=== PATIENT | female | born 1970 | race Caucasian/White ===

== ENCOUNTER 2018-11-25 10:34 | Inpatient (IN) | payer MEDICAID ==
[~2018-11-25] VITALS: Ht 157.5 cm; Wt 63.2 kg
[2018-11-25 10:37] VITALS: Ht 157.5 cm; Wt 63.2 kg
--- NOTE | 2018-11-25 10:55 | NUR ---
PT. IN ED WITH C/O CHAN AND NAUSEA SINCE YESTERDAY. REPORTS SHE HAD TWO EPISODES OF EMESIS THIS MORINING. DENIES CHEST PAIN. NUMBNESS OR TINGLING TO BODY. STRENGTHS EQUAL. NO DEFICITS NOTED. PT. AAOX4, TALKING AND RESPONDING APPROPRIATELY, BREATHING E/U. REPORTS CHAN 12/09. PT. PLACED ON FULL SPINNER TENDER. CALL LIGHT IN REACH. WILL CONTINUE TO MONITOR.
--- NOTE | 2018-11-25 11:19 | NUR ---
PT. TAKEN TO CT VIA [facility]
[2018-11-25 11:20] LABS: BASOPHIL % 1.1 % (0-2); PLATELET COUNT 214 x10^3mcL (130-400)
[2018-11-25 11:25] LABS: RED CELL DISTRIBUTION WIDTH 15.2 % (11.5-14.5)
[2018-11-25 11:38] LABS: CALCIUM 8.4 mg/dL (8.5-10.1); CARBON DIOXIDE 25.2 mmol/L (21-32); CREATININE SERUM 2.2 mg/dL (0.6-1.0); POTASSIUM SERUM 4.5 mmol/L (3.5-5.1)
--- NOTE | 2018-11-25 12:35 | NUR ---
PER DR. WYATT, HOLD NICARDIPINE DRIP IF DECREASE IN MAP IS MORE THAN 20% FROM WHEN PATIENT ARRIEVED TO ED.
--- NOTE | 2018-11-25 12:53 | NUR ---
PT. LAYING ON GURNEY IN POSITON OF COMFORT. BREATHING E/U. NOT IN ANY APPARENT DISTRESS. DAUGHTER AT BEDSIDE. CALL LIGHT IN REACH. WILL CONTINUE TO MONITOR.
--- NOTE | 2018-11-25 13:19 | NUR ---
PT. REPORTS CHAN 10/09 AT THIS TIME. CALL LIGHT IN REACH. WILL CONTINUE TO MONITOR.
[2018-11-25] MEDS ORDERED: AVALIDE1 TA1 PO (13:31)
--- NOTE | 2018-11-25 13:31 | NUR ---
MED REC COMPLETED USING PILLS BROUGHT IN BY PT.
[2018-11-25 13:33] LABS: MAGNESIUM 1.8 mg/dL (1.8-2.4); PHOSPHOROUS 4.2 mg/dL (2.5-4.9)
--- NOTE | 2018-11-25 13:35 | NUR ---
NICARDIPINE DRIP D/C PER DR. WYATT ORDERS. MAP 113 AT THIS TIME.
[2018-11-25 13:36] LABS: FREE T4 0.91 ng/dL (0.76-1.46); FREE THYROXINE INDEX 2.5 ug/dL (1.4-4.5); T4(THYROXINE) 7.1 ug/dL (4.7-13.3)
[2018-11-25 13:45] LABS: CHOLESTEROL 215 mg/dL (<200); CHOLESTEROL/HDL RATIO 6.3; HDL CHOLESTEROL 34 mg/dL (40-60); TRIGLYCERIDES 623 mg/dL (<150)
--- NOTE | 2018-11-25 13:45 | NUR ---
REPORT GIVEN TO MECCA BAILEY IN ICU FOR FURTHER CARE OF PATIENT. ALL QUESTIONS AND CONCERNS ADDRESSED.
--- NOTE | 2018-11-25 13:57 | NUR ---
PT ADMITTED TO ICU FROM ED AT THIS TIME. VITAL SIGNS: T 98.1, HR 84, BP 159/87 (104), SPO2 99% ON RA, RR 14. PT IS AWAKE, ALERT, AND ABLE TO COMMUNICATE NEEDS AND FOLLOW COMMANDS. PT IS A/O X 4. NO FACIAL DROOP NOTED, NO UNILATERAL WEAKNESS NOTED, PT C/O HEADACHE WITH 4/10 PAIN. PT DENIES SHORTNESS OF BREATH AND DENIES CHEST PAIN. CHEST WALL STABLE, CHEST EXPANSION SYMMETRIC. PT AMBULATORY, ABLE TO ADJUST POSITION IN BED. BOWEL SOUNDS ACTIVE, PT DENIES NAUSEA AT THIS TIME. VITAL SIGNS STABLE, BLOOD PRESSURE CONTINUES TRENDING DOWN FROM WHEN SHE WAS ADMITTED TO THE ED. WILL CONTINUE MONITORING PT.
--- NOTE | 2018-11-25 14:00 | NUR ---
PT. TRANSPORTED TO ICU FOR FURTHER EVAL AND CARE. PT. AAOX4, TALKING AND RESPONDING APPROPRIATELY, BREATHING E/U. NAD. TRANSPORTED BY RONA RN AND SILVANO EMT. PT. STABLE AT TIME OF TRANSFER.
[2018-11-25 14:12] LABS: microscopic required? YES; urine erythrocyte 2+ (NEGATIVE)
--- NOTE | 2018-11-25 14:28 | NUR ---
DR. PASTRANA & DR. BIRMINGHAM AT BEDSIDE, UPDATES PROVIDED AND QUESTIONS ANSWERED. THEY REQUESTED HOLDING NICARDIPINE GTT FOR NOW SINCE SBP IS <175, AND STATED THAT Q 30 MIN BP MONITORING IS OK AT THIS TIME. WILL CONTINUE TO MONITOR PT.
[2018-11-25 14:34] LABS: AMPHETAMINE QUAL UR NONE DETECTED (See below)
--- NOTE | 2018-11-25 15:40 | NUR ---
PT C/O 09/08 HEADACHE, MEDICATED PRN WITH NORCO.
[2018-11-25 15:42] VITALS: BP 159/87
--- NOTE | 2018-11-25 15:45 | NUR ---
IVF EMBRYOLOGIST AT BEDSIDE TO DO ECHOCARDIOGRAM.
[2018-11-25 16:00] VITALS: BP 156/94
--- NOTE | 2018-11-25 16:14 | NUR ---
NICARDIPINE GTT HELD AT THIS TIME PER REQUEST FROM DR. AYALA. HE SUGGESTED TRYING A DOSE OF PO CARVEDILOL INSTEAD. WILL CARRY OUT NEW ORDER AND CONTINUE MONITORING PT.
--- NOTE | 2018-11-25 16:20 | NUR ---
CALLED DR. PASTRANA RE: ORDER FOR NS @ 60 ML/HR SINCE MOST RECENT BP IS 181/101. DR. PASTRANA SAID SHE WOULD UPDATE THE ORDER TO A REDUCED RATE, BUT WOULD LIKE HER TO BE ON IV FLUID D/T THE PT'S RENAL FUNCTION. WILL CARRY OUT UPDATED ORDER.
--- NOTE | 2018-11-25 17:23 | NUR ---
PT ASSISTED TO BEDSIDE COMMODE. HAD 850 ML URINE OUTPUT, YELLOW IN COLOR. PT ASSISTED BACK INTO BED, VITAL SIGN MONITORING CORDS RECONNECTED.
--- NOTE | 2018-11-25 18:40 | NUR ---
DR. SALGUERO MADE AWARE NIBP 86/50 MAP 61 WITH CURRENT IVF RATE OF 30ML/HR AND SUGGESTED CHANGING THE RATE BACK TO 60 ML/HR ORIGINALLY ORDERED BY DR. PASTRANA. PER DR. SALGUERO SHE WILL CHANGE THE ORDER.
[2018-11-25 19:00] VITALS: BP 91/51
--- NOTE | 2018-11-25 19:13 | NUR ---
DR. PENA AT BEDSIDE TO SEE AND ASSESS PT. PER DR. PENA PT STABLE TO TRANSFER TO [facility]. NOC MORTGAGE LOAN ORIGINATOR MADE AWARE.
--- NOTE | 2018-11-25 19:40 | NUR ---
RECIEVED PT IN NO ACUTE DISTRESS. AOX4. TELE #4, SR. DENIES CP. LUNG SOUNDS CLEAR BILATERALLY. BREATHING E/U ON RA. DENIES CHAN/N/V. LATEST BP 93/53, HR 72. IV TO LAC, PATENT, NO REDNESS/SWELLING. BED IN LOWEST POSITION, 2 SIDE RAILS UP, CALL LIGHT IN REACH. INSTRUCTED TO CALL FOR ASSISTANCE.
[2018-11-26] VITALS: BP 112/70
--- NOTE | 2018-11-26 01:19 | NUR ---
AOX4 AT THIS TIME. BREATHING E/U ON RA. VSS. DENIES CHAN/N/V. NO ACUTE DISTRESS NOTED. WILL CONTINUE TO MONITOR.
--- NOTE | 2018-11-26 07:04 | NUR ---
NO C/O HEADACHE/N/V OVERNIGHT. LATEST BP 148/88. BUN THIS AM 66. DR. PASTRANA NOTIFIED VIA [employer]. WILL ENDORSE TO ONCOMING LEO.
--- NOTE | 2018-11-26 07:10 | NUR ---
RECEIVED REPORT FROM HANSEL BAILEY. ALL QUESTIONS ANSWERED AND ADDRESSED. WILL ASSUME CARE OF PT.
[2018-11-26 07:15] VITALS: BP 148/88
[2018-11-26 09:12] LABS: BASOPHIL % 1.6 % (0-2); PLATELET COUNT 228 x10^3mcL (130-400)
[2018-11-26 09:20] LABS: CALCIUM 8.1 mg/dL (8.5-10.1); CARBON DIOXIDE 28.6 mmol/L (21-32); CREATININE SERUM 2.8 mg/dL (0.6-1.0); POTASSIUM SERUM 4.5 mmol/L (3.5-5.1)
[2018-11-26 09:22] LABS: RED CELL DISTRIBUTION WIDTH 15.2 % (11.5-14.5)
--- NOTE | 2018-11-26 09:51 | NUR ---
DR. SOTO AND RESIDENTS AT BEDSIDE ASSESSING PT. ALL QUESTIONS ANSWERED AND ADDRESSED AND UPDATES PROVIDED. PT OK TO TRANSFER. WILL CARRY OUT ORDERS ONCE RECEIVED.
--- NOTE | 2018-11-26 12:04 | NUR ---
PT RESTING BUT EASILY AROUSABLE AT THIS TIME. AAOX4. ABLE TO FOLLOW COMMANDS. SPEECH IS CLEAR AND APPROPRIATE. NO FACIAL DROOP. SMILE IS SYMMETRICAL. NO UNILATERAL WEAKNESS. PUPILS 3MM IN SIZE AND BRISK B/E. DENIES DIZZINESS, SYNCOPE, CP, OR SOB. REMAINS ON ROOM AIR. O2 SAT OF 96%. NSR ON SCRATCH POLISHER. S1/S2 HEART SOUNDS AUDIBLE. NO MURMURS AUSCULTATED. MOD PALPABLE PULSES X4. CAP REFILL <3 SEC. NO EDEMA. SKIN IS WARM/DRY TO TOUCH, BURKS/BROWN IN COLOR. NICARDIPINE GTT REMAINS OFF. BP = 148/87 (106). PIV TO L AC INTACT, PORT PATENT, DRESSING CDI. NS INFUSING @ 60 ML/HR. ABD IS SOFT, SYMMETRICAL, ROUNDED, AND NONTENDER. ACTIVE BOWEL SOUNDS AUSCULTATED. VOIDS FREELY VIA BEDSIDE COMMODE. CCHO DIET. TOLERATING WELL. NO N/V OR ABD PAIN. PT ABLE TO MOVE ALL EXTREMITIES. FULL ROM NOTED. ABLE TO TURN AND REPOSITION SELF. X3 SIDE RAILS UP, BED IN LOWEST POSITION, CALL LIGHT WITHIN REACH.
--- NOTE | 2018-11-26 12:42 | NUR ---
DR. STOCK AT BEDSIDE ASSESSING PT. UPDATES PROVIDED. STATED FOR PT TO HAVE BP AROUND 150-160 SYSTOLIC TO MAINTAIN KIDNEY FUNCTION. STRICT I&O STILL.
--- NOTE | 2018-11-26 12:53 | NUR ---
REPORT GIVEN TO MELLISA BAILEY. ALL QUESTIONS ANSWERED AND ADDRESSED. [facility] WHEEL[facility]IR. PT'S BELONGINGS BEING TAKEN WITH THEM WELL.
--- NOTE | 2018-11-26 13:11 | NUR ---
Discount pharmacy card and list to low cost medical clinics given to patient by Maximus Herron.
--- NOTE | 2018-11-26 13:40 | NUR ---
AT 1320 - RECEIVED PATIENT FROM ICU NURSE VIA WHEELCHAIR. SETTLED IN ROOM, ORIENTED TO SURROUNDINGS AND PLACED ON CARDIAC MONITORING, TELE # 16. PATIENT IS AWAKE, ALERT AND APPEARS ORIENTED. BP 155/78. MONITOR SHOWING SINUS RHYTHM, RATE 80'S. IV INFUSING NS AT 60 ML/HR.
[2018-11-26 13:46] VITALS: BP 144/77
[2018-11-26 16:56] VITALS: BP 153/88
--- NOTE | 2018-11-26 18:38 | NUR ---
IV IN LAC INFILTRATED. RESITED IN RFA AND IV INFUSION OF NS RESUMED AT 60 ML/HR. LAST BP 153/88. NO C/O PAIN. FAMILY AT BEDSIDE. RECEIVED CALL FROM LAB - URINE FOR NA AND PROTEIN STIL REQUIRED. PATIENT AWARE. PROVIDED WITH SPECIMEN CONTAINER. WILL ENDORSE CARE TO NIGHT NURSE.
--- NOTE | 2018-11-26 19:30 | NUR ---
PT RECIEVED FROM DAY NURSE. PT RESTING IN BED COMFORTABLY. FAMILY AT BEDSIDE. A/O X4, DENIES PAIN OR DISCOMFORT AT THIS TIME. TELE 16, NSR. DENIES CP, NV, DIZZINESS, OR PALPATATIONS. PALPABLE PULSES, NO EDEMA NOTED AT THIS TIME. BREATHING E/U ON RA. ABD SOFT AND ROUND, DENIES PAIN TO PALPATION. PT AMBULATORY AT BASELINE. RFA IV, INTACT AND INFUSING. BED AT LOWEST POSITION. CALL LIGHT WITHIN REACH. WILL CONTINUE TO MONITOR.
[2018-11-26 20:12] VITALS: BP 191/98
[2018-11-26 21:46] VITALS: BP 153/75
--- NOTE | 2018-11-26 21:50 | NUR ---
PT BP 191/98, MEDICATED PT WITH SCHEDULED COREG. BP RECHECKED AN HR LATER, BP NOW 153/75. PT RESTING COMFORTABLY IN BED.
--- NOTE | 2018-11-27 00:19 | NUR ---
PT RESTINGIN BED AT THIS TIME. NO S/S OF PAIN OR DISTRESS NOTED AT THIS TIME. BREATHING E/U ON RA. BED AT LOWEST POSITION. CALL LIGHT WITHIN REACH. WILL CONTINUE TO MONITOR.
[2018-11-27 05:38] VITALS: BP 158/89
[2018-11-27 06:08] LABS: BASOPHIL % 0.9 % (0-2); PLATELET COUNT 232 x10^3mcL (130-400)
--- NOTE | 2018-11-27 06:41 | NUR ---
PT RESTING IN BED AT THIS TIME. DENIES PAIN OR DISCOMFORT. BREATHING E/U ON RA, NO SIGNS OF ACUTE DISTRESS THIS SHIFT. ALL NEEDS AND CONCERNS ADDRESSED THIS SHIFT. BED AT LOWEST POSITION. CALL LIGHT WITHIN REACH. WILL ENDORSE TO DAY NURSE.
[2018-11-27 07:05] LABS: CARBON DIOXIDE 28.2 mmol/L (21-32); CREATININE SERUM 2.6 mg/dL (0.6-1.0); MAGNESIUM 1.8 mg/dL (1.8-2.4); PHOSPHOROUS 4.4 mg/dL (2.5-4.9)
[2018-11-27 07:06] LABS: CALCIUM 8.1 mg/dL (8.5-10.1)
[2018-11-27 07:09] LABS: RED CELL DISTRIBUTION WIDTH 15.2 % (11.5-14.5)
--- NOTE | 2018-11-27 07:35 | NUR ---
RECEIVED PATIENT FROM NIGHT NURSE. AWAKE, ALERT AND ORIENTED. REPORTS THAT HEADACHE HAS MOSTLY RESOLVED. LAST BP READING 158/89. IV SALINE LOCKED AT THIS TIME.
[2018-11-27 08:24] VITALS: BP 172/93
--- NOTE | 2018-11-27 08:36 | NUR ---
AT 0805 - SEEN BY BRIANNA OSBORN WHO SPOKE WITH PATIENT REGARDING PLAN OF CARE. LEO MAURO TRANSLATED IN [place]GI[place]. PATIENT TO REMAINS IN HOSPITAL FOR 2-3 DAYS FOR MANAGEMENT OF BP. URINE COLLECTED AND TAKEN TO LAB FOR URINE NA AND PROTEIN.
[2018-11-27 12:34] VITALS: BP 142/90
--- NOTE | 2018-11-27 16:23 | NUR ---
RESTING QUIETLY. LAST BP 142/90. REPORTS ONLY LOW HEADACHE DISCOMFORT.
[2018-11-27 17:00] VITALS: BP 155/92
--- NOTE | 2018-11-27 18:39 | NUR ---
VSS. BP 155/92 AT LAST READING. PATIENT AMBULATORY. EATING A CCHO DIET. SINUS RHYTHM ON MONITOR. RATE 68. NO C/O PAIN. WILL ENDORSE CARE TO NIGHT NURSE.
--- NOTE | 2018-11-27 19:21 | NUR ---
RECEIVED PT COMFORTABLY RESTING IN BED. DENIES CHAN OR DIZZINESS AT THIS TIME.NO DISTRESS NOTED.BREATHING EVEN AND UNLABORED. SALINE LOCK TO RFA, PATENT AND INTACT. NO S/S OF PAIN. BED IN LOWEST POSITION,CALL LIGHT WITHIN REACH. WILL CONTINUE TO MONITOR.
[2018-11-27 20:19] VITALS: BP 155/92
--- NOTE | 2018-11-27 20:30 | NUR ---
PT C/O CHAN 07/09. MEDICATED TYLENOL 650MG PO ORDERED. WILL CONTINUE TO MONITOR.
[2018-11-28 04:43] VITALS: BP 113/62
--- NOTE | 2018-11-28 05:01 | NUR ---
PT APPEARS TO BE SLEEPING. NO DISTRESS NOTED. DENIES PAIN AT THIS TIME. BED IN LOWEST POSITION,CALL LIGHT WITHIN REACH. WILL CONTINUE TO MONITOR.
[2018-11-28 05:04] VITALS: BP 148/81
[2018-11-28 06:56] LABS: BASOPHIL % 1.2 % (0-2); PLATELET COUNT 227 x10^3mcL (130-400)
[2018-11-28 07:00] LABS: CALCIUM 8.3 mg/dL (8.5-10.1); CARBON DIOXIDE 25.7 mmol/L (21-32); CREATININE SERUM 2.7 mg/dL (0.6-1.0); POTASSIUM SERUM 4.9 mmol/L (3.5-5.1)
[2018-11-28 07:05] LABS: RED CELL DISTRIBUTION WIDTH 14.9 % (11.5-14.5)
--- NOTE | 2018-11-28 07:28 | NUR ---
CARE ENDORSED TO DAY NURSE CHRISTIAN.
--- NOTE | 2018-11-28 07:43 | NUR ---
Recieved report from night nurse at 0715. Patient observed in bed sleeping. Respirations regular. Performed morning assessment at 0740. Patient reports no pain. Patient reports no headache. HR regular, rhthym regular. CO of 67. Current B/P performed by OPERATIONAL RISK ANALYST during morning assessment. B/P at 151/98.
[2018-11-28 08:00] VITALS: BP 151/98
--- NOTE | 2018-11-28 09:05 | NUR ---
Patient accepted morning meds. Patient reports minor headache with a pain of 3 out of 10 upon exertion. Does not want pain medication. Will reasses pain in 30 minutes.
[2018-11-28 11:53] VITALS: BP 130/83
--- NOTE | 2018-11-28 14:26 | NUR ---
Performed midafternoon assessment. Patient laying comfortably in bed talking to family member.
[2018-11-28 16:22] VITALS: BP 147/85
--- NOTE | 2018-11-28 17:16 | NUR ---
Reassessed patient during hourly rounds. Patient stable and speaking with her visitors.
--- NOTE | 2018-11-28 18:19 | NUR ---
Patient's blood pressure reassessed by CLASSICS PROFESSOR. Current B/P of 147/85. Patient sitting upright in bed eating dinner and speaking with her visitors.
--- NOTE | 2018-11-28 19:30 | NUR ---
RECIVED PATIENT AT START OF SHIFT A/O X4, ROMANIAN SPEAKING. DENIES PAIN. NO SOB ON RA. ON TELE 16 NSR 76. PULSES MODERATE, NO EDEMA NOTED. IV TO RFA IS SALINE LOCKED AND PATENT. CALL LIGHT AND BEDSIDE TABLE WITHIN REACH.
[2018-11-28 20:51] VITALS: BP 154/84
--- NOTE | 2018-11-29 00:55 | NUR ---
PATIENTS EYES ARE CLOSED, BREATHS EVEN AND REGULAR, NO SIGNS OF DISTRESS. CALL LIGHT WITHIN REACH.
[2018-11-29 05:19] VITALS: BP 125/85
[2018-11-29 06:28] LABS: CALCIUM 8.3 mg/dL (8.5-10.1); CARBON DIOXIDE 26.6 mmol/L (21-32); CREATININE SERUM 2.7 mg/dL (0.6-1.0); POTASSIUM SERUM 5.5 mmol/L (3.5-5.1)
[2018-11-29 06:30] LABS: BASOPHIL % 1.4 % (0-2); PLATELET COUNT 236 x10^3mcL (130-400)
[2018-11-29 06:49] LABS: RED CELL DISTRIBUTION WIDTH 14.7 % (11.5-14.5)
--- NOTE | 2018-11-29 06:51 | NUR ---
PATIENT HAD NO SIGNIFICNAT EVENTS THIS SHIFT. NO SOB ON RA. DENIES PAIN. IV IS SALINE LOCKED AND PATENT. CALL LIGHT WITHIN REACH. WILL ENDORSE CARE TO DAYSHIFT NURSE.
--- NOTE | 2018-11-29 07:20 | NUR ---
RECEIVED PT FROM KAY RN. PT AA/OX4. SPEAKS ITALIAN. FACE SYMMETRICAL, SPEECH CLEAR. NO S/S OF ACUTE DISTRESS. REPORTS MILD CHAN, RATES 1/10. REPORTS TOLERABLE AT THIS TIME. DENIES DIZZINESS. DENIES CP. NO SOB ON ROOM AIR. CALM/COOPERATIVE. INSTRUCTED TO USE CALL LIGHT TO CALL FOR ASSISTANCE PRN. VERBALIZED UNDERSTANDING. BED IN LOW POSITION. CALL LIGHT WITHIN REACH. WILL CONTINUE TO MONITOR.
[2018-11-29 07:55] VITALS: BP 132/78
[2018-11-29 11:54] VITALS: BP 139/92
--- NOTE | 2018-11-29 12:02 | NUR ---
PT SITTING AT SIDE OF BED. AA/OX4. DENIES PAIN. NO SOB ON ROOM AIR. DENIES CHAN. NO DIZZINESS. NO N/V. NO CHEST PAIN. CALM/COOPERATIVE. IV WNL, SALINE LOCKED. URINE OUTPUT 700CC, CLEAR/YELLOW. STRICT I/O IN PLACE. BED IN LOW POSITION. CALL LIGHT WITHIN REACH. WILL CONT. TO MONITOR.
[2018-11-29] MEDS ORDERED: CARVEDILOL12.5 M1 PO (13:07)
[2018-11-29] MEDS ORDERED: NOR5 PO (13:08)
[2018-11-29] MEDS ORDERED: LIPI10 PO (13:09)
--- NOTE | 2018-11-29 14:35 | NUR ---
PT BEING DISCHARGED TO HOME. AWAKE, ALERT, ORIENTED X4. NO S/S OF ACUTE DISTRESS. NO SOB ON ROOM AIR. DENIES CHEST PAIN. NSR ON TELE. TELE REMOVED. NO CHAN. NO DIZZINESS. NO DIFFICULTY URINATING. NO N/V/D. DISCHARGE EDUCATION PROVIDED TO PATIENT. INSTRUCTED TO FOLLOW UP WITH DR. STOCK AT UPCOMING APPT AND TO RECEIVE LAB WORK AT DR. STOCK OFFICE. PT VERBALIZED UNDERSTANDING. PRESCRITPION PROVIDED TO PATIENT. IV REMOVED FROM RFA, CATHETER IN TACT. PRESSURE APPLIED. SITE WNL. TAKEN TO DISCHARGE LOBBY BY [facility] STUDENT KALLI. PT AMBULATORY WITH FULL ROM, GAIT STEADY.
== END 2018-11-29 14:38 | disposition home or self-care (01) | DRG 199 ==
LOC: ED 10:34 → IC 12:48 → DU 11-26 13:20
PROVIDERS: Student in an Organized Health Care Education/Training Program; ADMIT General Practice
DX: I16.1 Hypertensive emergency (principal); N17.0 Acute kidney failure with tubular necrosis; D69.59 Other secondary thrombocytopenia; E83.51 Hypocalcemia; R51 Headache; T46.5X6A Underdosing of other antihypertensive drugs, initial encounter; I12.9 Hypertensive chronic kidney disease with stage 1 through stage 4 chronic kidney disease, or unspecified chronic kidney disease; N18.2 Chronic kidney disease, stage 2 (mild); E78.5 Hyperlipidemia, unspecified; Z68.24 Body mass index [BMI] 24.0-24.9, adult; Y92.009 Unspecified place in unspecified non-institutional (private) residence as the place of occurrence of the external cause
CPT/HCPCS: 84439; G0378; J0360; J0780; J1200; J2405; J7030; Q0092

== ENCOUNTER 2019-11-05 17:56 | Inpatient (IN) | payer MEDICAID ==
[~2019-11-05] VITALS: Ht 162.6 cm; Wt 67.4 kg
[~2019-11-05 17:56] MED LIST: AVALIDE1 TA1 PO; CARVEDILOL12.5 M1 PO; LIPI10 PO; NOR5 PO
[2019-11-05 20:59] LABS: UA SPECIFIC GRAVITY 1.015 (1.005-1.035); microscopic required? YES; urine erythrocyte 2+ (NEGATIVE)
[2019-11-05 20:59] LABS: BASOPHIL % 0.5 % (0-2); PLATELET COUNT 233 x10^3mcL (130-400); RED CELL DISTRIBUTION WIDTH 13.7 % (11.5-14.5)
[2019-11-05 21:19] LABS: BILIRUBIN TOTAL 0.4 mg/dL (0.20-1.00); CALCIUM 8.3 mg/dL (8.5-10.1); CARBON DIOXIDE 18.4 mmol/L (21-32); TOTAL PROTEIN, SERUM 7.2 g/dL (6.4-8.2)
[2019-11-05 21:24] LABS: ALBUMIN 3.1 g/dL (3.4-5.0); CREATININE SERUM 5.5 mg/dL (0.6-1.0); POTASSIUM SERUM 5.7 mmol/L (3.5-5.1)
[2019-11-05 22:15] VITALS: BP 199/102
[2019-11-05 22:21] VITALS: Ht 162.6 cm; Wt 67.4 kg
[2019-11-05 22:25] LABS: AMPHETAMINE QUAL UR NONE DETECTED (See below)
[2019-11-05 22:43] LABS: HDL CHOLESTEROL 48 mg/dL (40-60)
[2019-11-05 22:54] LABS: CHOLESTEROL 239 mg/dL (<200); TRIGLYCERIDES 631 mg/dL (<150)
[2019-11-05 23:36] VITALS: BP 160/00; BP 160/100
[2019-11-06 06:07] VITALS: BP 164/87
[2019-11-06 07:41] LABS: CARBON DIOXIDE 18.6 mmol/L (21-32)
[2019-11-06 07:43] LABS: CREATININE SERUM 5.3 mg/dL (0.6-1.0)
[2019-11-06 08:28] LABS: BASOPHIL % 0.6 % (0-2); PLATELET COUNT 213 x10^3mcL (130-400); RED CELL DISTRIBUTION WIDTH 14.1 % (11.5-14.5)
[2019-11-06 08:45] VITALS: BP 174/98
[2019-11-06 12:16] VITALS: BP 181/96
[2019-11-06 13:22] VITALS: BP 163/91
[2019-11-06 13:36] LABS: CREATININE UR 35.7 mg/dL (0.60-1.80)
[2019-11-06 16:30] VITALS: BP 162/89
[2019-11-06 18:02] LABS: CALCIUM 8.1 mg/dL (8.5-10.1); CARBON DIOXIDE 20.6 mmol/L (21-32); POTASSIUM SERUM 4.4 mmol/L (3.5-5.1)
[2019-11-06 18:09] LABS: CREATININE SERUM 5.5 mg/dL (0.6-1.0)
[2019-11-06 20:06] VITALS: BP 183/99
[2019-11-07 04:55] VITALS: BP 173/98
[2019-11-07 06:40] VITALS: BP 162/68
[2019-11-07 08:00] LABS: CALCIUM 7.7 mg/dL (8.5-10.1); CARBON DIOXIDE 22.2 mmol/L (21-32); MAGNESIUM 1.9 mg/dL (1.8-2.4); PHOSPHOROUS 4.1 mg/dL (2.5-4.9); POTASSIUM SERUM 4.6 mmol/L (3.5-5.1)
[2019-11-07 08:01] LABS: CREATININE SERUM 5.4 mg/dL (0.6-1.0)
[2019-11-07 08:30] LABS: BASOPHIL % 0.6 % (0-2); PLATELET COUNT 174 x10^3mcL (130-400); RED CELL DISTRIBUTION WIDTH 14.2 % (11.5-14.5)
[2019-11-07 09:00] VITALS: BP 159/85
[2019-11-07 12:53] VITALS: BP 150/84
[2019-11-07 17:22] VITALS: BP 161/96
[2019-11-07 20:19] VITALS: BP 135/81
[2019-11-08 05:46] VITALS: BP 163/91
[2019-11-08 06:37] LABS: BASOPHIL % 0.7 % (0-2); PLATELET COUNT 184 x10^3mcL (130-400); RED CELL DISTRIBUTION WIDTH 13.8 % (11.5-14.5)
[2019-11-08 07:00] VITALS: BP 159/90
[2019-11-08 07:05] LABS: CALCIUM 7.9 mg/dL (8.5-10.1); MAGNESIUM 1.8 mg/dL (1.8-2.4); PHOSPHOROUS 4.6 mg/dL (2.5-4.9); POTASSIUM SERUM 4.2 mmol/L (3.5-5.1)
[2019-11-08 10:30] VITALS: BP 157/80
[2019-11-08 11:58] VITALS: BP 144/80
[2019-11-08] MEDS ORDERED: CORE25 PO (12:37)
[2019-11-08] MEDS ORDERED: NOR10 PO (12:37)
[2019-11-08 13:59] VITALS: BP 144/80
[2019-11-08 15:37] VITALS: BP 134/76
[2019-11-09 09:08] LABS: COMPLEMENT C3 105 mg/dL (82-167); COMPLEMENT C4 28 mg/dL (14-44)
[2019-11-10 13:06] LABS: cnab c-anca <1:20 titer (Neg:<1:20); cnab p-anca <1:20 titer (Neg:<1:20)
== END 2019-11-08 17:40 | disposition home or self-care (01) | DRG 199 ==
LOC: ED 17:56 → DU 21:01
PROVIDERS: Internal Medicine Nephrology; Specialist; ADMIT Internal Medicine; ATTEND Internal Medicine
DX: I16.1 Hypertensive emergency (principal); N17.0 Acute kidney failure with tubular necrosis; E44.1 Mild protein-calorie malnutrition; E87.2 Acidosis; E83.51 Hypocalcemia; E87.5 Hyperkalemia; Z68.25 Body mass index [BMI] 25.0-25.9, adult; E87.1 Hypo-osmolality and hyponatremia; N18.9 Chronic kidney disease, unspecified; Z79.899 Other long term (current) drug therapy; E78.5 Hyperlipidemia, unspecified; D64.9 Anemia, unspecified; Z20.828 Contact with and (suspected) exposure to other viral communicable diseases
CPT/HCPCS: 82962; 83520; 83880; 86256; G0378; J0360; J0610; J1815; J2270; J2405; J3490; J7030; Q0092